=== PATIENT | male | born 1940 | race Caucasian/White ===

== ENCOUNTER 2022-02-23 05:37 | Inpatient (IN) | payer MEDICARE ==
[2022-02-16 16:53] LABS: BASOPHILS % (AUTO) 0.3 % (0-1); EOSINOPHILS # (AUTO) 0.1 X10'3 (0-0.9); EOSINOPHILS % (AUTO) 2.2 % (0-6); LYMPHOCYTES # (AUTO) 1.2 X10'3 (1.1-4.8); MEAN CORPUSCULAR HEMOGLOBIN 31.1 PG (27.0-31.0); MEAN CORPUSCULAR VOLUME 91.7 FL (78-98); MEAN PLATELET VOLUME 7.2 FL (7.4-10.4); MONOCYTES # (AUTO) 0.8 X10'3 (0-0.9); MONOCYTES % (AUTO) 12.5 % (2-12); NEUTROPHILS # (AUTO) 4.2 X10'3 (1.8-7.7); PRE OP HEMATOCRIT 43.8 % (42.0-52.0); PRE OP HEMOGLOBIN 14.9 g/dL (14.0-17.9); PRE OP PLATELET COUNT 172 X10'3 (140-440); RED BLOOD COUNT 4.78 X10'6 (4.70-6.10); RED CELL DISTRIBUTION WIDTH 14.1 % (11.5-14.5)
[2022-02-16 17:02] LABS: ALBUMIN 3.7 G/DL (3.4-5.0); ALBUMIN/GLOBULIN RATIO 1.2 (1.1-1.5); ALKALINE PHOSPHATASE 89 IU/L (46-116); BLOOD UREA NITROGEN 26 MG/DL (7-18); BUN/CREATININE RATIO 27.1 (5.4-32.0); CALCIUM 8.3 MG/DL (8.5-10.1); CHLORIDE 107 MMOL/L (99-107); CREATININE 0.96 MG/DL (0.60-1.10); PRE OP ALT 19 U/L (30-65); PRE OP ANION GAP 6 (8-16); PRE OP AST 17 U/L (10-37); PRE OP BILIRUB, TOTAL 0.4 MG/DL (0.0-1.0); PRE OP GLUCOSE 88 MG/DL (70-104); PRE OP POTASSIUM 4.4 MMOL/L (3.4-5.1); PRE OP SODIUM 138 MMOL/L (135-145); TOTAL CARBON DIOXIDE 25.1 MMOL/L (24-32); TOTAL PROTEIN 6.8 G/DL (6.4-8.2); eGFR 75 ML/MIN
[~2022-02-23] VITALS: Ht 160 cm; Wt 66.0 kg
[2022-02-23] VITALS (13 sets, daily range): BP systolic 128–150; BP diastolic 50–81
[~2022-02-23 05:37] MED LIST: AMLO2.5T5 PO; ATOR10TA70 PO; BACL-11 PO; CALC500T11 PO; CELE-85 PO; GABA-530 PO; MELO-102 PO; OXYC-150 PO; POLY17PO10 PO; ROPI3TAB4 PO; SENN-263 PO; acetaminophen 325mg tablet PO ONE; ceFAZolin inj. 2,000 MG in dextrose 5%-water 100 ML IV ONE; celeCOXIB 100mg capsule PO ONE; famotidine 20mg tablet PO ONE; gabapentin 300mg capsule PO ONE; metoclopramide 5 mg/ml inj IV ONE; oxyCODONE SR 10mg (sust. release) tab -2 tabs (20mg) PO ONE; ringers solution, lacted 1,000 ML IV SCH; vancomycin/NS 1 GM in NS 250 ML IV ONE
[2022-02-23] MEDS ORDERED: tranexamic acid inj. 1,000 MG in normal saline 100ml IV soln 90 ML IV ONE (06:00)
[2022-02-23] MEDS ORDERED: vancomycin/NS 1 GM in NS 250 ML IV ONE (06:00)
[2022-02-23] MEDS ORDERED: ketorolac trometh. 30mg/ml inj. ONE (06:46)
[2022-02-23] MEDS ORDERED: epiNEPHrine 1 mg/ml inj ONE (06:46)
[2022-02-23] MEDS ORDERED: cloNIDine hcl/PF 100mcg/ml inj ONE (06:47)
[2022-02-23] MEDS ORDERED: ROPIVAcaine 0.5% (5mg/ml) 30ml vial ONE ×2 (06:47→09:47)
[2022-02-23] MEDS ORDERED: HYDROmorphone 1 mg/ml syringe IV PRN (06:50)
[2022-02-23] MEDS ORDERED: naloxone 0.4 mg/ml inj IV PRN (06:50)
[2022-02-23] MEDS ORDERED: HYDROmorphone inj. 0.5 MG/0.5 ML DISP.SYRIN IV PRN (06:50)
[2022-02-23] MEDS ORDERED: diphenhydrAMINE 25mg capsule PO PRN (06:50)
[2022-02-23] MEDS ORDERED: ondansetron/PF 4mg/2ml inj IV PRN ×2 (06:50→08:40)
[2022-02-23] MEDS ORDERED: magnesium hydroxide 30ml (MOM) UD suspension PO PRN (06:50)
[2022-02-23] MEDS ORDERED: acetaminophen 325mg tablet PO PRN (06:50)
[2022-02-23] MEDS ORDERED: bisacodyl 10mg suppository rectal RC PRN (06:50)
--- NOTE | 2022-02-23 06:55 | NUR ---
PATIENT WATCHED ORTHO DVD AND DID HIS 5 SHOWERS INSTRUCTED. [facility]'S INTACT.
[2022-02-23] MEDS: gabapentin 300mg capsule PO SCH ×3 (08:00→23:51)
[2022-02-23] MEDS: ascorbic acid 500mg tablet PO SCH ×2 (08:00→20:13)
[2022-02-23] MEDS: sennosides 8.6mg tablet PO SCH ×2 (08:00→20:13)
[2022-02-23] MEDS ORDERED: vancomycin/NS 1 GM ADD-VANTAGE 250 ML IV SCH (08:00)
[2022-02-23] MEDS: celeCOXIB 100mg capsule PO SCH ×2 (08:00→20:13)
[2022-02-23] MEDS: ROPINIRole 1mg tablet PO SCH (08:00)
[2022-02-23] MEDS ORDERED: midazolam 1 mg/ML 2ml injection ONE (08:15)
[2022-02-23] MEDS ORDERED: fentaNYL/PF 50MCG/1 ML 2ML syringe ONE (08:15)
[2022-02-23] MEDS ORDERED: morphine 2 MG/ML inj. syringe IV PRN (08:40)
[2022-02-23] MEDS ORDERED: ROPIVAcaine 0.2% (10 MG/5 ML) BOLUS INJECTION ADDCANAL PRN (08:40)
[2022-02-23] MEDS ORDERED: ringers solution, lacted 1,000 ML IV SCH (08:40)
[2022-02-23] MEDS ORDERED: meperidine/PF 25mg/ml syringe IV PRN ×3 (08:40)
[2022-02-23] MEDS ORDERED: proCHLORperazine 10 MG/2 ml inj IV PRN (08:40)
[2022-02-23] MEDS ORDERED: acetaminophen 1,000mg/100ml IV 100 ML IV PRN (08:40)
[2022-02-23] MEDS ORDERED: labetalol 20mg/4ml (5mg/ml) syringe IV ONE (09:12)
[2022-02-23] MEDS ORDERED: ePHEDrine 50MG/ML INJ. ONE (09:12)
[2022-02-23] MEDS ORDERED: vancomycin 1,000mg inj ONE (09:17)
[2022-02-23] MEDS ORDERED: propofol inj 20 ML IV ONE (09:47)
--- NOTE | 2022-02-23 10:24 | NUR ---
Received from OR via HOAPITAL BED , accompanied by Anesthesiologist DR AMOR and report given by Anesthesiolgist. PT PRESENT WITH PIV 18G LEFT FOREARM, RIGHT KNEE WRAP WITH ZOYA DRESSING, POWDER PACK AND ON-Q READY. VSS. Addendum: 02/23/22 at 1052 by Natividad Spicer RN, RN Amended: Links added.
[2022-02-23] MEDS: ceFAZolin/D5W- 1GM premix 50 ML IV SCH ×2 (11:27→17:58)
[2022-02-23] MEDS: amLODIPine 2.5mg tablet PO SCH (11:50)
[2022-02-23] MEDS: aspirin 325mg tablet PO SCH (11:50)
[2022-02-23] MEDS: ROPIVAcaine 0.2%/PF PUMP/bolus 545 ML ADDCANAL SCH (12:14)
[2022-02-23] MEDS ORDERED: tranexamic acid inj. 700 MG in normal saline 100ml IV soln 100 ML IV ONE (13:30)
[2022-02-23] MEDS: potassium cl 20mEq in 1/2 NS 1,000 ML IV SCH ×3 (14:17→22:50)
--- NOTE | 2022-02-23 14:44 | NUR ---
Report called to receiving nurse GURU CASTRO. Transferred viaHOSPITAL BED TO ROOM [facility]. BED IN LOW LOCKED POSITION WITH CALL LIGHT IN REACH, GURU CASTRO AT BEDSIDE. ONE PT Belongings BAG SENT WITH PT TO ROOM [facility]. Special Issues communicated to receiving nurse. Addendum: 02/23/22 at 1514 by Natividad Spicer RN RN Amended: Links added.
--- NOTE | 2022-02-23 14:54 | NUR ---
Patient in room IN [facility] CURRENTLY. I have received report from GLORIA GRIFFITHS FROM [facility] and had the opportunity to ask questions and assume patient care.
[2022-02-23] MEDS: baclofen 10mg tablet PO SCH (18:06)
[2022-02-23] MEDS: atorvastatin 10mg tablet PO SCH (18:06)
[2022-02-23] MEDS: multivitamins, therapeutics tablet PO SCH (18:07)
[2022-02-23] MEDS: polyethylene glycol 3350 17gm powd pack PO SCH (18:08)
--- NOTE | 2022-02-23 18:32 | NUR ---
PATIENT CAME UP WITH MORNING MEDS IN CHART, I GAVE THE DAILY MEDS BUT NOT THE MEDS THAT WOULD BE DUE AT 1999.
--- NOTE | 2022-02-23 19:20 | NUR ---
Problems reprioritized. Patient report given, questions answered & plan of care reviewed with GLORIA CARRINGTON.
[2022-02-23] MEDS: diphenhydrAMINE 25mg capsule PO PRN (20:15)
--- NOTE | 2022-02-23 21:06 | NUR ---
DOCUMENTED UNDER PHYSICAL ASSESSMENT THAT PATIENT HAD AN INDWELLING BROOKS CATHETER. NOTED PATIENT HAS A CONDOM CATHETER.
[2022-02-23] MEDS: oxyCODONE/APAP 10/325mg tablet PO PRN (22:38)
[2022-02-24 02:00] VITALS: BP 92/36
--- NOTE | 2022-02-24 06:17 | NUR ---
Received report from GLORIA Tejeda
[2022-02-24 06:37] VITALS: BP 114/44
[2022-02-24] MEDS: potassium cl 20mEq in 1/2 NS 1,000 ML IV SCH ×3 (06:50→22:50)
[2022-02-24 07:16] LABS: ANION GAP 3 (8-16); CHLORIDE 109 MMOL/L (99-107); POTASSIUM 4.9 MMOL/L (3.5-5.1); SODIUM 138 MMOL/L (135-145); TOTAL CARBON DIOXIDE 25.9 MMOL/L (24-32)
[2022-02-24 07:17] LABS: BASOPHILS % (AUTO) 0.3 % (0-1); EOSINOPHILS # (AUTO) 0.2 X10'3 (0-0.9); EOSINOPHILS % (AUTO) 2.2 % (0-6); HEMATOCRIT 35.2 % (42.0-52.0); HEMOGLOBIN 11.8 g/dl (14.0-17.9); LYMPHOCYTES # (AUTO) 0.8 X10'3 (1.1-4.8); LYMPHOCYTES % (AUTO) 9.8 % (21-51); MEAN CORPUSCULAR HEMOGLOBIN 30.9 PG (27.0-31.0); MEAN CORPUSCULAR HGB CONC 33.6 g/dL (33.0-36.5); MEAN CORPUSCULAR VOLUME 91.9 FL (78-98); MEAN PLATELET VOLUME 7.4 FL (7.4-10.4); MONOCYTES # (AUTO) 1.1 X10'3 (0-0.9); MONOCYTES % (AUTO) 12.8 % (2-12); NEUTROPHILS # (AUTO) 6.4 X10'3 (1.8-7.7); NEUTROPHILS % (AUTO) 74.9 % (42-75); PLATELET COUNT 121 X10'3 (140-440); RED BLOOD COUNT 3.83 X10'6 (4.70-6.10); RED CELL DISTRIBUTION WIDTH 13.9 % (11.5-14.5); WHITE BLOOD COUNT 8.6 X10'3 (4.5-11.0)
[2022-02-24] MEDS: sennosides 8.6mg tablet PO SCH ×2 (08:33→21:00)
[2022-02-24] MEDS: polyethylene glycol 3350 17gm powd pack PO SCH (08:33)
[2022-02-24] MEDS: aspirin 325mg tablet PO SCH (08:33)
[2022-02-24] MEDS: atorvastatin 10mg tablet PO SCH (08:34)
[2022-02-24] MEDS: baclofen 10mg tablet PO SCH (08:34)
[2022-02-24] MEDS: gabapentin 300mg capsule PO SCH ×2 (08:35→16:00)
[2022-02-24] MEDS: ROPINIRole 1mg tablet PO SCH (08:35)
[2022-02-24] MEDS: multivitamins, therapeutics tablet PO SCH (08:35)
[2022-02-24] MEDS: ascorbic acid 500mg tablet PO SCH ×2 (08:35→21:46)
[2022-02-24] MEDS: celeCOXIB 100mg capsule PO SCH ×2 (08:35→21:47)
[2022-02-24] MEDS: amLODIPine 2.5mg tablet PO SCH (08:36)
--- NOTE | 2022-02-24 09:19 | NUR ---
Joint surgery consult: Pt s/p R knee surgery this admit per EMR. Pt seen by CLEVE for written/verbal high protein ed w/ RD contact information provided. Pt reports taking MVI and vitamin D supplementation at home. CLEVE encouraged pt to contact dietitian's office if further questions/concerns. Addendum: 02/24/22 at [address] Amended: Links added. Addendum: 02/24/22 at [address] [place]* Joint surgery consult: Pt/SO s/p R knee surgery this admit per EMR. Pt seen by CLEVE for written/verbal high protein ed w/ RD contact information provided. Pt/SO reports taking MVI and vitamin D supplementation at home. CLEVE encouraged pt to contact dietitian's office if further questions/concerns. Addendum: 02/24/22 at [address] [place]* Joint surgery consult: Pt s/p R knee surgery this admit per EMR. Pt/SO seen by RD for written/verbal high protein ed w/ RD contact information provided. Pt/SO reports taking MVI and vitamin D supplementation at home. RD encouraged pt to contact dietitian's office if further questions/concerns.
--- NOTE | 2022-02-24 10:35 | NUR ---
Patients in to see patient this morning and when told patient has discharge orders to home she became visably upset, she has many multiple chronic health issues and feels that patient is not a safe discharge to home as he has frontal lobe dementia history and poor judgement, was in tears over this. Reassured her that we will not discharge him home if she feels unsafe, she stated that she was convinced by her conversations with the office/surgeon that patient would go to short term rehab after surgery until he was safe to go home. Called surgeon to relay all of this, discharge to be held today and will reassess tomorrow morning.
[2022-02-24 11:42] VITALS: BP 142/49
--- NOTE | 2022-02-24 14:38 | NUR ---
attempted called MD Sainz, no response. left message awaiting reply
--- NOTE | 2022-02-24 14:41 | NUR ---
Patient had episode with "choking" per , per this has happened twice in the past at home. Patient is NOT in any sort of respiratory distress at this time, however feels that he has something stuck in his throat and is throwing up. Patted patients back for about 20 minutes [address] call to Dr. Sainz and he did not reply, voicemail was left.
[2022-02-24] MEDS ORDERED: famotidine/PF 10 mg/ml inj IV ONE (14:55)
--- NOTE | 2022-02-24 15:30 | NUR ---
Patients food stuck in throat relieved by pepcid IV
--- NOTE | 2022-02-24 15:45 | NUR ---
Had long conversation with son about patients discharge plan, spoke to son Magdlaeno on the phone and he told this RN that the plan is for him to come home with him to his home with no steps with his , sister and other brother will be able to assist also. was upset talking to physical therapy about patients discharge and how she can not take care of him. This RN has had the same conversation multiple times today however did not know that the patient himself has family members willing to help take care of him at home rather than going to rehab. Will call case management for update.
--- NOTE | 2022-02-24 16:47 | NUR ---
Left message for Portia in case management regarding patient.
[2022-02-24] MEDS: oxyCODONE/APAP 10/325mg tablet PO PRN (17:02)
--- NOTE | 2022-02-24 17:32 | NUR ---
Magdaleno melton phone number #[phone] Addendum: 02/24/22 at 1748 by Adali Quiroga RN *[phone]
[2022-02-24 18:00] VITALS: BP 166/60
--- NOTE | 2022-02-24 18:11 | NUR ---
Report given to GLORIA Knowles
[2022-02-24] MEDS: diphenhydrAMINE 25mg capsule PO PRN (21:47)
[2022-02-24 22:00] VITALS: BP 134/48
[2022-02-25] MEDS: gabapentin 300mg capsule PO SCH ×2 (00:45→09:34)
[2022-02-25] MEDS: oxyCODONE/APAP 10/325mg tablet PO PRN ×2 (03:05→10:48)
--- NOTE | 2022-02-25 05:16 | NUR ---
disconnected SCD's as patient keeps trying to climb out of bed and they became a tripping hazard
--- NOTE | 2022-02-25 06:11 | NUR ---
reported to days. noted pt anticipates discharge this am.
--- NOTE | 2022-02-25 06:40 | NUR ---
received report from GLORIA Knowles
[2022-02-25 06:51] VITALS: BP 120/56
[2022-02-25 07:05] LABS: BASOPHILS % (AUTO) 0.2 % (0-1); EOSINOPHILS # (AUTO) 0.3 X10'3 (0-0.9); EOSINOPHILS % (AUTO) 2.2 % (0-6); HEMATOCRIT 35.5 % (42.0-52.0); HEMOGLOBIN 11.7 g/dl (14.0-17.9); LYMPHOCYTES # (AUTO) 0.8 X10'3 (1.1-4.8); LYMPHOCYTES % (AUTO) 6.8 % (21-51); MEAN CORPUSCULAR HEMOGLOBIN 30.3 PG (27.0-31.0); MEAN CORPUSCULAR HGB CONC 32.9 g/dL (33.0-36.5); MEAN CORPUSCULAR VOLUME 91.9 FL (78-98); MEAN PLATELET VOLUME 7.5 FL (7.4-10.4); MONOCYTES # (AUTO) 1.3 X10'3 (0-0.9); MONOCYTES % (AUTO) 11.8 % (2-12); PLATELET COUNT 118 X10'3 (140-440); RED BLOOD COUNT 3.86 X10'6 (4.70-6.10); RED CELL DISTRIBUTION WIDTH 14.1 % (11.5-14.5); WHITE BLOOD COUNT 11.4 X10'3 (4.5-11.0)
[2022-02-25] MEDS: amLODIPine 2.5mg tablet PO SCH (08:00)
[2022-02-25] MEDS: ROPINIRole 1mg tablet PO SCH (08:00)
[2022-02-25] MEDS: baclofen 10mg tablet PO SCH (08:00)
[2022-02-25] MEDS: ROPIVAcaine 0.2%/PF PUMP/bolus 545 ML ADDCANAL SCH (08:40)
[2022-02-25] MEDS: aspirin 325mg tablet PO SCH (09:34)
[2022-02-25] MEDS: celeCOXIB 100mg capsule PO SCH (09:34)
[2022-02-25] MEDS: multivitamins, therapeutics tablet PO SCH (09:34)
[2022-02-25] MEDS: sennosides 8.6mg tablet PO SCH (09:34)
[2022-02-25] MEDS: atorvastatin 10mg tablet PO SCH (09:34)
[2022-02-25] MEDS: polyethylene glycol 3350 17gm powd pack PO SCH (09:34)
[2022-02-25] MEDS: ascorbic acid 500mg tablet PO SCH (09:34)
--- NOTE | 2022-02-25 12:28 | NUR ---
Patient discharged to home via wheelchair to private vehicle in stable condition. All discharge instructions given to patient and son Magdaleno and daughter in law Lisy. Patient was set up with medications prior to surgery. Provided with a new onQ ball for discharge. All instructions received and understood. 18 gauge iv removed from left forearm cannula intact no complications.
== END 2022-02-25 12:25 | disposition home health service (06) | DRG 470 ==
LOC: PAS 05:37 → ORTHO 4S 06:52
PROVIDERS: ADMIT Orthopaedic Surgery; ATTEND Orthopaedic Surgery
PROC: 3E0T3BZ Introduction of Anesthetic Agent into Peripheral Nerves and Plexi, Percutaneous Approach (ICD-10-PCS; 2022-02-23)
PROC: 3E0T33Z Introduction of Anti-inflammatory into Peripheral Nerves and Plexi, Percutaneous Approach (ICD-10-PCS; 2022-02-23)
PROC: 0SRC069 Replacement of Right Knee Joint with Oxidized Zirconium on Polyethylene Synthetic Substitute, Cemented, Open Approach (ICD-10-PCS; principal; 2022-02-23 08:11)
DX: M17.11 Unilateral primary osteoarthritis, right knee (principal); K21.9 Gastro-esophageal reflux disease without esophagitis; G47.33 Obstructive sleep apnea (adult) (pediatric); I10 Essential (primary) hypertension; Z88.0 Allergy status to penicillin; Z79.899 Other long term (current) drug therapy
CPT/HCPCS: 36415; 73560; 80051; 80053; 82948; 85025; 86885; 86900; 86901; 87081; 92508; 92616; 97110; 97116; 97161; 97530; A4215; A7000; C1713; C1776; G0378; J0171; J0690; J0735; J1170; J1885; J2250; J2704; J2765; J2795; J3010; J3370; J3480; J3490; J7060; J7120; Q0163; U0003; U0005